=== PATIENT | female | born 1945 | race Caucasian/White ===

== ENCOUNTER 2020-04-08 10:19 | Emergency (ER) | payer OTHER, MEDICARE | END 2020-04-08 10:39 | disposition home or self-care (01) | LOC: JVIRT 10:19 | DX: Z20.822 Contact with and (suspected) exposure to COVID-19 (principal) | CPT/HCPCS: C9803; G2012-GT; U0003 ==

== ENCOUNTER 2020-06-03 10:40 | Emergency (ER) | payer OTHER, MEDICARE | END 2020-06-03 11:14 | disposition home or self-care (01) | LOC: JVIRT 10:40 | DX: R05 Cough (principal); R53.83 Other fatigue; Z11.52 Encounter for screening for COVID-19 | CPT/HCPCS: C9803; G2251-GT; U0003 ==

== ENCOUNTER 2023-08-16 14:02 | Emergency (ER) | payer OTHER, MEDICARE ==
[2023-08-16 14:33] VITALS: BP 146/86; PULSE 74; RESP 20; TEMP 98; BMI 29.5
[2023-08-16] MEDS ORDERED: MECLIZINE HCL 25 MG TABLET (FP) ONE (15:05)
[2023-08-16] MEDS: MECLIZINE HCL 25 MG TABLET (FP) PO ONE (15:10)
[2023-08-16 15:37] LABS: HEMOGLOBIN 11.1 G/dL (10.7-15.3); MCH 29.8 pg (25.7-33.7); MCHC 31.6 g/dl (32.0-36.0); MEAN PLT VOLUME 7.9 fl (7.5-11.1); PLATELET COUNT 291.7 10^3/uL (134-434); RBC 3.72 10^6/uL (3.60-5.2); RDW 15.8 % (11.6-15.6); WHITE BLOOD COUNT 7.5 10^3/uL (4.0-10.8)
[2023-08-16 15:43] LABS: PLATELET ESTIMATE ADEQUATE
[2023-08-16 15:57] LABS: ALBUMIN 4.7 g/dl (3.4-5.0); ALK PHOS 73 U/L (45-117); ANION GAP 9 mmol/L (4-13); BILIRUBIN,TOTAL 0.5 mg/dl (0.2-1); CALCIUM 10.4 mg/dl (8.5-10.1); CHLORIDE 100 mmol/L (98-107); CO2 26 mmol/L (21-32); CREATININE 1.1 mg/dl (0.6-1.3); GLUCOSE,RANDOM 123 mg/dl (74-106); MAGNESIUM 2.2 mg/dL (1.8-2.4); POTASSIUM 4.5 mmol/L (3.5-5.1); SGOT/AST 15 U/L (15-37); SGPT/ALT 8 U/L (7-52); SODIUM 135 mmol/L (136-145); TOT PROT 7.5 g/dl (6.4-8.2)
[2023-08-16] MEDS ORDERED: METOCLOPRAMIDE HCL INJECTION 10 MG/2 ML VIAL ONE (17:10)
[2023-08-16] MEDS: METOCLOPRAMIDE HCL INJECTION 10 MG/2 ML VIAL IVPB ONE (17:16)
[2023-08-16] MEDS ORDERED: cefTRIAXone SODIUM 1 GM VIAL ONE (18:07)
[2023-08-16] MEDS: CEFTRIAXONE 1 GM in DEXTROSE 5%-WATER - 100 ML IVPB ONE (18:12)
== END 2023-08-16 21:23 | disposition home or self-care (01) ==
LOC: FER 14:02
PROC: 3E03329 Introduction of Other Anti-infective into Peripheral Vein, Percutaneous Approach (ICD-10-PCS; principal; 2023-08-16)
PROC: 3E033GC Introduction of Other Therapeutic Substance into Peripheral Vein, Percutaneous Approach (ICD-10-PCS; 2023-08-16)
DX: R42 Dizziness and giddiness (principal); N30.00 Acute cystitis without hematuria
CPT/HCPCS: 36415; 70450-TC; 70496-TC; 70498-TC; 71045-TC-FY; 80053; 81003; 81015; 83735; 84484; 85027; 87086; 87186; 93005; 99285-25; Q9967